=== PATIENT | male | born 1990 | race Caucasian/White ===

== ENCOUNTER 2016-07-13 09:46 | Emergency (ER) | payer OTHER ==
[2016-07-13 09:58] VITALS: BP 158/52; PULSE 74; RESP 16; TEMP 97.3; O2SAT 99
--- NOTE | 2016-07-13 11:27 | UCPHY ---
H & P Time Seen by Provider: 07/13/16 10:42 Patient Type: New HPI/ROS: This patient describes a one-week history of watery diarrhea. He reports between 5 and does not episodes a day including 6 episodes last night the mid sleep difficult. He has been using Lomotil with partial improvement and notes no other exacerbating or alleviating factors. He has not had this problem before. He had mild nausea early in the illness but no vomiting. He reports intermittent mild diffuse belly cramping. ROS: No fevers or chills. No other constitutional symptoms HEENT: No URI symptoms pulmonary: No symptoms cardiovascular: No lightheadedness. Integumentary: No skin rash : No symptoms GI: No bloody stool. 10 point ROS is otherwise negative. Social History: Patient does eat milk products. He has not had any recent foreign travel. No suspect food for potential infectious pathogens. Smoking Status: Never smoked Physical Exam: General Appearance: Alert, no distress. Eyes: Pupils equal and round no pallor or injection. ENT, Mouth: Mucous membranes moist. Respiratory: There are no retractions, lungs are clear to auscultation. Cardiovascular: Regular rate and rhythm. Gastrointestinal: Abdomen is soft and nontender, no masses, bowel sounds normal. Neurological: Alert with no focal deficits Skin: Warm and dry, no rashes. Musculoskeletal: Neck is supple nontender. Extremities are symmetrical, full range of motion. Psychiatric: Mood and affect normal DIFFERENTIAL DIAGNOSIS: After history and physical exam differential diagnosis was considered for viral gastroenteritis, food intolerance such as lactose intolerance, rule out bacterial or parasitic colitis Constitutional: Initial Vital Signs Temperature (C) 36.3 C 07/13/16 09:55 Heart Rate 74 07/13/16 09:55 Respiratory Rate 16 07/13/16 09:55 Blood Pressure 158/52 H 07/13/16 09:55 O2 Sat (%) 99 07/13/16 09:55 O2 Delivery Mode Room Air Allergies/Adverse Reactions: No Known Allergies Allergy (Unverified 07/13/16 09:54) Home Medications: Medication Instructions Recorded Albuterol 07/13/16 Lomotil Tab (*) 07/13/16 MDM/Departure - MDM Diagnostics: Patient provided stool sample for stool culture, O and P which are pending ED Course/Re-evaluation: This patient appears clinically well. Counseled him to try stopping dairy for potential food intolerance. Follow up with Gastroenterology for any ongoing symptoms pending stool studies. - Depart Disposition: Home, Routine, Self-Care Clinical Impression: Diarrhea Qualifiers: Diarrhea type: unspecified type Qualifier Code: (R19.7) Diarrhea, unspecified Condition: Good Instructions: Acute Diarrhea (ED) Additional Instructions: Diagnosis: Diarrhea Plan: Avoid dairy to see if this helps resolved diarrhea He also might cut we to see if that is contributing Continue Imodium We will contact you if your labs reveal any evidence of bacteria or parasites in the stool Follow up with a panelboard operator for any ongoing symptoms despite the treatment plan Referrals: Elisha Odom MD [Primary Care Provider] - As per Instructions Carl Razo MD [Medical Doctor] - As per Instructions - PQRS PQRS Measurement: NA
== END 2016-07-13 11:44 | disposition home or self-care (01) ==
LOC: CED 09:46
DX: R19.7 Diarrhea, unspecified (principal)
CPT/HCPCS: G0463-PO